=== PATIENT | male | born 1935 | race Caucasian/White ===

== ENCOUNTER 2022-04-28 16:51 | Observation (INO) | payer MEDICARE, SELFPAY ==
[2022-04-28 16:53] VITALS: BP 187/122; PULSE 72; RESP 17; TEMP 37.1; O2SAT 94; BMI 24.4
--- NOTE | 2022-04-28 17:19 | HMH.EDAMS ---
Discharge Plan Disposition Chief Complaint: Altered Mental Status Prescriptions Prescriptions: No Action donepezil 5 mg Tablet 5 mg PO DAILY metoprolol tartrate 100 mg Tablet 100 mg PO BID finasteride 5 mg Tablet 5 mg PO DAILY Referrals Follow up/Referrals: Sruthi Valverde MD [Primary Care Provider] - See instructions Instructions Patient Instructions: DI for Altered Mental Status Discharge ED Provider: Lj Smith Altered Mental Status HPI General Chief Complaint: Altered Mental Status Stated Complaint: Confused Time Seen by Provider: 04/28/22 17:09 Mode of Arrival: EMS Source of Information: EMS Limitations: No Limitations Description of Symptoms (Recalled from ER Triage Doc. by RN): 86 M presents via EMS from home after family called out for weakness and AMS. EMS reports patient is a/o x4 and was able to tell them the brand of ambulance they were riding in. Patient has history of chronic UTI and urinary incontinence which he typically wears a condom cathetor for. Family reports patient has not urinated since last night. Patient is hypertensive in route, 190/100. EMS has an 18g to LUE. History of Present Illness HPI narrative: Patient presents with altered mental status. H&P is limited due to patient being confused he resides with family he states that he has been weak and altered. My direct questioning the patient denies being in any pain. He states he is confused he denies recent illness Related Data Home Medications Medication Instructions Recorded Confirmed donepezil 5 mg tablet 5 mg PO DAILY Memory 04/28/22 04/28/22 finasteride 5 mg tablet 5 mg PO DAILY Urinary 04/28/22 04/28/22 metoprolol tartrate 100 mg tablet 100 mg PO BID Blood Pressure 04/28/22 04/28/22 Allergies Allergy/AdvReac Type Severity Reaction Status Date / Time No Known Allergies Allergy Verified 04/28/22 17:03 [facility] Disclaimer: The information contained in this section may have been updated after the patient was seen, as this information can be updated by other users. Medical History Chronic UTI (urinary tract infection) Dementia Hypertension Urinary incontinence Social History Smoking Status: Never smoker alcohol intake: never current occupational status: unemployed Travel in the last 8 weeks: None ROS Obtained: Yes unobtainable due to mental condition Physical Exam General General appearance: alert and in no apparent distress Head Head exam: atraumatic, normocephalic and normal inspection Eye Eye exam: Present normal appearance, PERRL and EOMI ENT ENT exam: Present normal exam, normal oropharynx, mucous membranes moist, TM's normal bilaterally and normal external ear exam Neck Neck exam: Present normal inspection, full ROM and trachea midline; Absent meningismus or lymphadenopathy Chest Chest inspection: Present normal inspection and symmetric chest wall rise; Absent tenderness Respiratory Respiratory exam: Present normal lung sounds bilaterally; Absent respiratory distress Cardiovascular Cardiovascular exam: Present regular rate and normal rhythm; Absent JVD Abdominal Exam Abdominal exam: Present soft and normal bowel sounds; Absent distention, tenderness or guarding Extremities Exam Extremities exam: Present normal inspection, full ROM and normal capillary refill; Absent calf tenderness Back Exam Back exam: Present normal inspection; Absent tenderness Neurological Exam Neurological exam: Present alert and oriented X3 (Patient is oriented only to person, not place nor time.) Psychiatric Psychiatric exam: Present normal affect and normal mood Skin Skin exam: Present warm, dry, intact and normal color Lymphatic Lymphatic Findings: no adenopathy Medical Decision Making Marty Inquiry Pt receiving controlled substance: No Vital Signs: 04/28/22 16:53 04/28/22 17:30 [place]
[2022-04-28 17:26] LABS: Basophils # 0.1 K/mm3 (0-0.2); Basophils % 0.6 % (0.1-2.0); Eosinophils # 0.2 K/mm3 (0.0-0.4); Eosinophils % 1.4 % (0.1-12.0); Hematocrit 46.9 % (42.0-52.0); Hemoglobin 15.8 g/dL (14.1-18.0); Lymphocytes # 0.3 K/mm3 (0.7-4.5); Lymphocytes % 2.4 % (10-50); Mean Corpuscular HGB Conc 33.7 g/dL (31.8-35.4); Mean Corpuscular Hemoglobin 30.4 pg (27.0-31.2); Mean Corpuscular Volume 90.3 fl (80-94); Monocytes # 0.5 K/mm3 (0.1-1.0); Neutrophils # 10.8 K/mm3 (1.8-7.8); Neutrophils % 91.5 % (37.0-80.0); Platelet Count 269 K/mm3 (142-424); Red Cell Distribution Width 14.3 % (11.5-17.5); White Blood Count 11.8 K/mm3 (4.8-10.8)
[2022-04-28 17:29] LABS: MANUAL DIFFERENTIAL MANUAL DIFFERENTIAL (MANUAL DIFF)
[2022-04-28 17:30] VITALS: BP 161/110
[2022-04-28 17:31] LABS: Microscopic, Urine URINE MICROSCOPIC (MICROSCOPIC)
[2022-04-28 17:31] LABS: Chloride 103 mmol/L (98-107); Sodium 138 mmol/L (136-145)
[2022-04-28 17:32] LABS: Potassium 4.2 mmoL/L (3.5-5.1)
--- NOTE | 2022-04-28 17:32 | XR_ITS ---
PROCEDURE INFORMATION: Exam: XR Chest Exam date and time: 04/28/2022 6:13 PM Age: 86 years old Clinical indication: Other: AMS TECHNIQUE: Imaging protocol: Radiologic exam of the chest. Views: 1 view. COMPARISON: No relevant prior studies available. FINDINGS: Lungs: Nonspecific bibasilar opacities, likely atelectasis. Stigmata of old granulomatous disease. Pleural spaces: Unremarkable. No pleural effusion. No pneumothorax. Heart/Mediastinum: Unremarkable. No cardiomegaly. Vasculature: Vascular calcifications. Tortuous thoracic aorta. Bones/joints: Unremarkable. IMPRESSION: Nonspecific bibasilar opacities, likely atelectasis. Please exclude atypical infection clinically.
--- NOTE | 2022-04-28 17:32 | CT_ITS ---
PROCEDURE INFORMATION: Exam: CT Head Without Contrast Exam date and time: 04/28/2022 5:48 PM Age: 86 years old Clinical indication: Altered mental status/memory loss; Confusion or disorientation; Additional info: AMS TECHNIQUE: Imaging protocol: Computed tomography of the head without contrast. Radiation optimization: All CT scans at this facility use at least one of these dose optimization techniques: automated exposure control; mA and/or kV adjustment per patient size (includes targeted exams where dose is matched to clinical indication); or iterative reconstruction. REPORTING DATA: Count of CT and Cardiac NM exams in prior 12 months: This patient has received 0 known CTs and 0 known cardiac nuclear medicine studies in the 12 months prior to the current study. COMPARISON: No relevant prior studies available. FINDINGS: Brain: Moderate chronic brain volume loss and chronic small vessel ischemic changes. Cerebral ventricles: No ventriculomegaly. Paranasal sinuses: Retention cysts in the ethmoid air cells. Mastoid air cells: Visualized mastoid air cells are well aerated. Orbital cavities: Status post bilateral cataract surgery. Bones/joints: Unremarkable. No acute fracture. Soft tissues: Unremarkable. IMPRESSION: No acute intracranial findings. If there is high clinical concern for acute infarction, consider MRI for further evaluation. ASSESSMENT: ASPECTS score ([place] Stroke Program Early CT Score) is 10.
[2022-04-28 17:33] LABS: Appearance,Urine CLEAR (Clear); Bilirubin,Urine Negative (Negative); Blood, Urine 1+ (Negative); Color,Urine YELLOW (Yellow); Glucose,Urine (UA) Negative (Negative); Ketones,Urine Negative (Negative); Leukocyte Esterase,Urine 1+ (Negative); Nitrate,Urine POSITIVE (Negative); Protein,Urine 1+ (Negative); Specific Gravity, Urine 1.025 (1.005-1.030); Urobilinogen,Urine 0.2 EU/dl (0.2)
[2022-04-28 17:34] LABS: Alanine Aminotransferase 29 U/L (12-78); Alkaline Phosphatase 86 U/L (38-126); Anion Gap 11.2 mEq/L (5-15); Aspartate Amino Transferase 36 U/L (17-59); Blood Urea Nitrogen 21 mg/dl (9-20); Carbon Dioxide 28 mmol/L (22.0-30.0); Creatinine Clearance Estimated 51 mL/min (50-200); Estimated Glomerular Filt Rate 57 ml/min (>60); GFR (African American) 69 ML/MIN (>60)
[2022-04-28 17:35] LABS: Albumin Level 4.1 g/dl (3.5-5.0); Albumin/Globulin Ratio 1.5 (1.1-1.8); Calcium 8.4 mg/dl (8.4-10.2); Globulin 2.7 g/dL (1.3-3.2); Glucose 109 mg/dl (74-100); Total Protein,Serum 6.8 g/dl (6.3-8.2)
[2022-04-28 17:40] LABS: Lymphocytes % 4 % (10-50); Monocytes % 3 % (2-9); Neutrophils % 93 % (42-76); Total Cells Counted 100
[2022-04-28 17:41] LABS: Platelet Estimate Normal; RBC Morphology Normal
[2022-04-28 17:43] LABS: Bacteria,Urine Trace /lpf; Squamous Epithelial Cell,Urine Occasional #/hpf (0-5)
[2022-04-28 17:47] LABS: Troponin I < 0.01 ng/ml (0.00-0.034)
[2022-04-28 18:20] LABS: Lactic Acid 1.1 mmol/L (0.7-2.1)
[2022-04-28 18:30] VITALS: BP 178/116; PULSE 69; RESP 18; O2SAT 95
--- NOTE | 2022-04-28 19:03 | HMH.EDAMS ---
Discharge Plan Disposition Patient Disposition: Admitted As Inpatient Condition: Fair Prescriptions Prescriptions: No Action donepezil 5 mg Tablet 5 mg PO DAILY metoprolol tartrate 100 mg Tablet 100 mg PO BID finasteride 5 mg Tablet 5 mg PO DAILY Referrals Follow up/Referrals: Sruthi Valverde MD [Primary Care Provider] - See instructions Clinical Impressions Clinical Impression: Altered mental status, Acute lower urinary tract infection Instructions Patient Instructions: DI for Altered Mental Status Discharge ED Provider: Lj Smith Altered Mental Status HPI General Chief Complaint: Altered Mental Status Stated Complaint: Confused Time Seen by Provider: 04/28/22 17:09 Mode of Arrival: EMS Source of Information: EMS Limitations: No Limitations Description of Symptoms (Recalled from ER Triage Doc. by RN): 86 M presents via EMS from home after family called out for weakness and AMS. EMS reports patient is a/o x4 and was able to tell them the brand of ambulance they were riding in. Patient has history of chronic UTI and urinary incontinence which he typically wears a condom cathetor for. Family reports patient has not urinated since last night. Patient is hypertensive in route, 190/100. EMS has an 18g to LUE. Related Data Home Medications Medication Instructions Recorded Confirmed donepezil 5 mg tablet 5 mg PO DAILY Memory 04/28/22 04/28/22 finasteride 5 mg tablet 5 mg PO DAILY Urinary 04/28/22 04/28/22 metoprolol tartrate 100 mg tablet 100 mg PO BID Blood Pressure 04/28/22 04/28/22 Allergies Allergy/AdvReac Type Severity Reaction Status Date / Time No Known Allergies Allergy Verified 04/28/22 17:03 [facility] Disclaimer: The information contained in this section may have been updated after the patient was seen, as this information can be updated by other users. Medical History Chronic UTI (urinary tract infection) Dementia Hypertension Urinary incontinence Social History (Updated 04/28/22 @ 19:03 by Lj Smith MD) Smoking Status: Never smoker alcohol intake: never current occupational status: unemployed Travel in the last 8 weeks: None ROS Obtained: Yes unobtainable due to mental condition Physical Exam General General appearance: alert and in no apparent distress Respiratory Respiratory exam: Present normal lung sounds bilaterally Cardiovascular Cardiovascular exam: Present regular rate Neurological Exam Neurological exam: Present alert; Absent oriented X3 Medical Decision Making Marty Inquiry Pt receiving controlled substance: No Vital Signs: 04/28/22 16:53 04/28/22 17:30 Temperature 98.7 F Temperature Source Oral Pulse Rate [Left] 72 Respiratory Rate 17 Blood Pressure 161/110 H Blood Pressure [Right Arm] 187/122 H Blood Pressure Mean 129 Blood Pressure Mean [Right Arm] 143 Blood Pressure Source [Right Arm] Automatic Cuff Blood Pressure Position [Right Arm] Sitting 02 Sat by Pulse Oximetry 94 L Oxygen Delivery Method Room Air Lab Data Lab Results 04/28/22 16:52: WBC 11.8 H, RBC 5.20, Hgb 15.8, Hct 46.9, MCV 90.3, MCH 30.4, MCHC 33.7, RDW 14.3, Plt Count 269, MPV 8.0, Neut % (Auto) 91.5 H, Lymph % (Auto) 2.4 L, [place] % (Auto) 4.0, Eos % (Auto) 1.4, Baso % (Auto) 0.6, Neut # (Auto) 10.8 H, Lymph # (Auto) 0.3 L, [place] # (Auto) 0.5, Eos # (Auto) 0.2, Baso # (Auto) 0.1, Total Counted 100, Neutrophils % (Manual) 93 H, Lymphocytes % (Manual) 4 L, Monocytes % (Manual) 3, Platelet Estimate Normal, RBC Morphology Normal 04/28/22 16:52: Sodium 138, Potassium 4.2, Chloride 103, Carbon Dioxide 28, Anion Gap 11.2, BUN 21 H, Creatinine 1.20, Estimated Creat Clear 51, Estimated GFR 57 L, Est GFR ( Amer) 69, Glucose 109 H, Calcium 8.4, Total Bilirubin 1.0, AST 36, ALT 29, Alkaline Phosphatase 86, Troponin I < 0.01, Total Protein 6.8, Albumin 4.1, Globulin 2.7, Albumin/Globulin Rati
--- NOTE | 2022-04-28 19:08 | PC.NURSE ---
waiting material control associate back from hospitalist for admission
[2022-04-28 19:18] LABS: Coronavirus 19, PCR Not Detected (NotDetected); Influenza A, PCR Not Detected (NotDetected); Influenza B, PCR Not Detected (NotDetected)
--- NOTE | 2022-04-28 19:35 | EXP.HP ---
History of Present Illness *Admission Date: 04/28/22 *Reason for visit:: Confusion outside normal *History of present illness: Mr. Norris is a 86-year-old male with a past medical history of Dementia, HTN and BPH. He presents to [facility] through the ER due to confusion outside his normal. There is no family at bedside at time of admission, but per discussion with ER Physician Dr. Smith who spoke with the daughter who lives with the patient the patient has been confused outside his normal for the last day and had not been able to urinate. In the ER the patient underwent a CT of the head that has not been read by radiology at the time of admission, on exam the patient has no focal neurological deficits, he is oriented to place and name, but not time or President. His urinalysis shows 1 plus leukoesterase, is positive for nitrates, has 1 plus blood, 10-20 WBC and Trace bacteria. In the ER, the patient had blood cultures and urine cultures drawn and was given a dose of Rocephin. The patient will be admitted with initial impression: UTI and change in mental status. [facility] Disclaimer: The information contained in this section may have been updated after the patient was seen, as this information can be updated by other users. Medical History (Updated 04/29/22 @ 11:53 by Russell Hugo MD) Chronic UTI (urinary tract infection) Dementia Hypertension Urinary incontinence Surgical History (Updated 04/28/22 @ 21:23 by Brittani Garcia RN) No significant past surgical history Family History (Updated 04/28/22 @ 21:23 by Brittani Garcia RN) No significant family history Social History (Updated 04/28/22 @ 21:23 by Brittani Garcia RN) Smoking Status: Never smoker alcohol intake: never current occupational status: unemployed Travel in the last 8 weeks: None Review of Systems Review of Systems Review of systems:: unable to obtain and pertinent systems reviewed and negative unless documented below Meds Home Medications and Allergies Home Medications Medication Instructions Recorded Confirmed Type donepezil 5 mg tablet 5 mg PO DAILY Memory 04/28/22 04/28/22 History finasteride 5 mg tablet 5 mg PO DAILY prostate 04/28/22 04/28/22 History metoprolol tartrate 100 mg tablet 100 mg PO BID Blood Pressure 04/28/22 04/28/22 History cefdinir 300 mg capsule 300 mg PO BID 6 days #12 caps 04/29/22 Rx tamsulosin 0.4 mg capsule 0.4 mg PO HS 30 days #30 caps 04/29/22 Rx New Prescriptions to Start Prescriptions: Russell Lema tamsulosin Russell Hugo Allergies Allergy/AdvReac Type Severity Reaction Status Date / Time No Known Allergies Allergy Verified 04/28/22 17:03 Exam Data for Last 24 hours Vital signs and Labs for Last 24 Hours: Temp Pulse Resp BP Pulse Ox 98.7 F 72 17 161/110 H 94 L 04/28/22 16:53 04/28/22 16:53 04/28/22 16:53 04/28/22 17:30 04/28/22 16:53 Laboratory Results - last 24 hr 04/28/22 16:52: WBC 11.8 H, RBC 5.20, Hgb 15.8, Hct 46.9, MCV 90.3, MCH 30.4, MCHC 33.7, RDW 14.3, Plt Count 269, MPV 8.0, Neut % (Auto) 91.5 H, Lymph % (Auto) 2.4 L, [place] % (Auto) 4.0, Eos % (Auto) 1.4, Baso % (Auto) 0.6, Neut # (Auto) 10.8 H, Lymph # (Auto) 0.3 L, [place] # (Auto) 0.5, Eos # (Auto) 0.2, Baso # (Auto) 0.1, Total Counted 100, Neutrophils % (Manual) 93 H, Lymphocytes % (Manual) 4 L, Monocytes % (Manual) 3, Platelet Estimate Normal, RBC Morphology Normal 04/28/22 16:52: Sodium 138, Potassium 4.2, Chloride 103, Carbon Dioxide 28, Anion Gap 11.2, BUN 21 H, Creatinine 1.20, Estimated Creat Clear 51, Estimated GFR 57 L, Est GFR ( Amer) 69, Glucose 109 H, Calcium 8.4, Total Bilirubin 1.0, AST 36, ALT 29, Alkaline Phosphatase 86, Troponin I < 0.01, Total Protein 6.8, Albumin 4.1, Globulin 2.7, Albumin/Globulin Ratio 1.5 04/28/22 17:25: Urine Color Yellow, Urine Appearance Clear, Urine pH 6.0, Ur Specific [place] 1.025,
--- NOTE | 2022-04-28 19:43 | PC.NURSE ---
Pt very restless at this time. Pt repositioned in bed and warm blankets provided. Lights turned off and call light within reach.
[2022-04-28 20:00] VITALS: PULSE 70
[2022-04-28 20:05] VITALS: BP 134/78; PULSE 69; RESP 18; TEMP 37; O2SAT 96
--- NOTE | 2022-04-28 20:06 | PC.NURSE ---
Report to LEONELA Peter
--- NOTE | 2022-04-28 20:19 | PC.NURSE ---
Pt arrived to floor via stretcher @ 2014
[2022-04-28 20:33] VITALS: BP 134/78; PULSE 69; RESP 14; TEMP 37.3; O2SAT 97
[2022-04-28 20:34] VITALS: BMI 22.3
[2022-04-28 21:24] LABS: Troponin I < 0.01 ng/ml (0.00-0.034)
--- NOTE | 2022-04-28 21:46 | PC.NURSE ---
REGGIE AUSTIN NOTIFIED THAT PT'S SNYDER BAG HAD BRIGHT RED BLOOD IN IT. DECKHAND STATED TO HOLD PM DOSE OF HEPARIN.
[2022-04-29] VITALS (8 sets, daily range): BP systolic 125–145; BP diastolic 66–96; PULSE 50–70; RESP 16–17; TEMP 36.7–39; O2SAT 92–95; BMI 22.3
[2022-04-29 00:01] LABS: Troponin I < 0.01 ng/ml (0.00-0.034)
--- NOTE | 2022-04-29 00:39 | PC.NURSE ---
COURTESY ROUND- PATIENT AWAKE LAYING IN BED WITH CALL LIGHT WITH REACH . PATIENT VOICED NO NEEDS AT THIS TIME
--- NOTE | 2022-04-29 04:31 | PC.NURSE ---
COURTESY ROUND- PATIENT ASLEEP. TRASH EMPTIED AND ICE WATER REFILLED
--- NOTE | 2022-04-29 06:34 | PC.NURSE ---
PT RESTED WELL THIS SHIFT. VSS. PT DID BECME FEBRILE ONCE THIS SHIFT TREATED WITH PRN MEDS. SNYDER REMAINS IN PLACE URINE WAS BLOODY MOST OF SHIFT BUT IS CLEARING UP. PT HAS HAD NO COMPLAINTS THIS SHIFT. VSS. BED ALARM IN PLACE FOR PT SAFETY.
[2022-04-29 07:25] LABS: Basophils # 0.1 K/mm3 (0-0.2); Basophils % 0.8 % (0.1-2.0); Eosinophils # 0.1 K/mm3 (0.0-0.4); Eosinophils % 1.6 % (0.1-12.0); Hematocrit 46.3 % (42.0-52.0); Lymphocytes # 0.7 K/mm3 (0.7-4.5); Lymphocytes % 7.8 % (10-50); Mean Corpuscular HGB Conc 32.4 g/dL (31.8-35.4); Mean Corpuscular Hemoglobin 30.1 pg (27.0-31.2); Mean Corpuscular Volume 92.9 fl (80-94); Mean Platelet Volume 7.7 fl (7.4-10.4); Monocytes # 0.6 K/mm3 (0.1-1.0); Monocytes % 7.1 % (1.7-9.3); Neutrophils # 6.9 K/mm3 (1.8-7.8); Neutrophils % 82.6 % (37.0-80.0); Platelet Count 243 K/mm3 (142-424); Red Blood Count 4.99 M/mm3 (4.60-6.20); Red Cell Distribution Width 14.4 % (11.5-17.5); White Blood Count 8.4 K/mm3 (4.8-10.8)
[2022-04-29 08:43] LABS: Alanine Aminotransferase 22 U/L (12-78); Albumin Level 3.5 g/dl (3.5-5.0); Albumin/Globulin Ratio 1.3 (1.1-1.8); Alkaline Phosphatase 76 U/L (38-126); Aspartate Amino Transferase 30 U/L (17-59); Bilirubin,Total 0.9 mg/dl (0.2-1.3); Blood Urea Nitrogen 20 mg/dl (9-20); Calcium 8.1 mg/dl (8.4-10.2); Carbon Dioxide 27 mmol/L (22.0-30.0); Chloride 104 mmol/L (98-107); Creatinine Clearance Estimated 47 mL/min (50-200); Estimated Glomerular Filt Rate 57 ml/min (>60); GFR (African American) 69 ML/MIN (>60); Globulin 2.6 g/dL (1.3-3.2); Glucose 101 mg/dl (74-100); Sodium 137 mmol/L (136-145); Total Protein,Serum 6.1 g/dl (6.3-8.2)
--- NOTE | 2022-04-29 09:32 | HMH.PHAINT1 ---
Pharmacy Intervention Comments: Medication reconciliation completed using external fill history and interview with pt family
--- NOTE | 2022-04-29 09:33 | PC.NURSE ---
pts vss, rothman removed, pt stated he had to urinate, attempted it with a urinal with no results. pt states he still has the urge. sent home meds to pharm.
--- NOTE | 2022-04-29 11:04 | EXP.DC.SUM ---
General Admission date:: 04/28/22 Discharge date: 04/29/22 HPI HPI HPI: Mr. Norris is a 86-year-old male with a past medical history of Dementia, HTN and BPH. He presents to [facility] through the ER due to confusion outside his normal. There is no family at bedside at time of admission, but per discussion with ER Physician Dr. Smith who spoke with the daughter who lives with the patient the patient has been confused outside his normal for the last day and had not been able to urinate. In the ER the patient underwent a CT of the head that has not been read by radiology at the time of admission, on exam the patient has no focal neurological deficits, he is oriented to place and name, but not time or President. His urinalysis shows 1 plus leukoesterase, is positive for nitrates, has 1 plus blood, 10-20 WBC and Trace bacteria. In the ER, the patient had blood cultures and urine cultures drawn and was given a dose of Rocephin. The patient will be admitted with initial impression: UTI and change in mental status. Hospital Course Hospital Course Hospital Course: 86-year-old male with Dementia, BPH, HTN presents with confusion outside his normal. Initial labs concerning for UTI. Gets UTIs - Change in mental status -Urinary tract infection Presented with confusion outside of his normal baseline mild cognitive impairment. Family expressed concern. Brought him to the ER. Found to have UTI on initial urinalysis. Admitted for IV antibiotics and monitoring with neurochecks overnight. Improved to baseline mentation by the following morning. Patient denies any dysuria. Has been wearing a condom cath regularly for at least the past 6 weeks. Sees urology at [facility]. Last antibiotic per review from his pharmacy was ciprofloxacin. Given response to ceftriaxone while inpatient, and culture showing gram-negative rods, will transition to cefdinir to complete 7-day course. Urinary retention likely complicating factor. Recommend patient follow-up as soon as possible with his urologist for discussion of further treatment such as indwelling catheter or in and out cathing. We will continue to follow culture after discharge, if resistant to cephalosporins, will adjust as needed. Stable for discharge home. Hypertension: Continue Metoprolol 100 mg po bid BPH: Continue Finesteride 5 mg po q day, initiate tamsulosin 0.4mg Daily Dementia: Continue Donepezil 5 mg po q day Exam Data for Last 24 hours Vital signs and Labs for Last 24 Hours: Temp Pulse Resp BP Pulse Ox 98.6 F 55 L 17 125/76 94 L 04/29/22 07:33 04/29/22 09:21 04/29/22 07:33 04/29/22 09:21 04/29/22 07:33 Laboratory Results - last 24 hr 04/28/22 16:52: WBC 11.8 H, RBC 5.20, Hgb 15.8, Hct 46.9, MCV 90.3, MCH 30.4, MCHC 33.7, RDW 14.3, Plt Count 269, MPV 8.0, Neut % (Auto) 91.5 H, Lymph % (Auto) 2.4 L, [place] % (Auto) 4.0, Eos % (Auto) 1.4, Baso % (Auto) 0.6, Neut # (Auto) 10.8 H, Lymph # (Auto) 0.3 L, [place] # (Auto) 0.5, Eos # (Auto) 0.2, Baso # (Auto) 0.1, Total Counted 100, Neutrophils % (Manual) 93 H, Lymphocytes % (Manual) 4 L, Monocytes % (Manual) 3, Platelet Estimate Normal, RBC Morphology Normal 04/28/22 16:52: Sodium 138, Potassium 4.2, Chloride 103, Carbon Dioxide 28, Anion Gap 11.2, BUN 21 H, Creatinine 1.20, Estimated Creat Clear 51, Estimated GFR 57 L, Est GFR ( Amer) 69, Glucose 109 H, Calcium 8.4, Total Bilirubin 1.0, AST 36, ALT 29, Alkaline Phosphatase 86, Troponin I < 0.01, Total Protein 6.8, Albumin 4.1, Globulin 2.7, Albumin/Globulin Ratio 1.5 04/28/22 17:25: Urine Color Yellow, Urine Appearance Clear, Urine pH 6.0, Ur Specific [place] 1.025, Urine Protein 1+, Urine Glucose (UA) Negative, Urine Ketones Negative, Urine Blood 1+, Urine Nitrate Positive, Urine Bilirubin Negative, Urine Urobilinogen 0.2, Ur Leukocyte Esterase 1+ A, Urine RBC 10-20, Urine WBC 10-20, Ur Squamous Epith Cells Occasional, Urine Bacteria Trace 04/28/22 17:50:
--- NOTE | 2022-04-29 12:56 | HMH.PHAINT1 ---
Pharmacy Intervention Comments: Discussed discharge medications with patient and family member. Both verbalized understanding and had no questions at this time
--- NOTE | 2022-05-03 15:25 | CARE MANAGER ---
Spoke with Mr. Norris regarding recent discharge. Patient had no complaints or concerns at time of call. He was unaware of f/u appt with Dr. Gruber on 05/07 @ 4524. I informed him of this information.
== END 2022-04-29 13:50 | disposition home or self-care (01) ==
LOC: ER 19:05 → 2ND 19:40
PROVIDERS: Nurse Practitioner Family; Admitting Provider Internal Medicine Adolescent Medicine; Emergency Provider Emergency Medicine; PCP Internal Medicine; Visit Provider Internal Medicine Adolescent Medicine
DX: N39.0 Urinary tract infection, site not specified (principal); I10 Essential (primary) hypertension; N40.0 Benign prostatic hyperplasia without lower urinary tract symptoms; R33.9 Retention of urine, unspecified; F03.90 Unspecified dementia, unspecified severity, without behavioral disturbance, psychotic disturbance, mood disturbance, and anxiety; Z79.899 Other long term (current) drug therapy; Z20.822 Contact with and (suspected) exposure to COVID-19
CPT/HCPCS: G0378; 36415; 51702; 70450; 71045; 80053; 81001; 83605; 84484; 85007; 85025; 87040; 87086; 87088; 87186; 99285; C9803; J0696; U0003; U0005

== ENCOUNTER 2022-06-17 19:42 | Observation (INO) | payer MEDICARE, SELFPAY ==
[2022-06-17 19:42] VITALS: BP 169/100; PULSE 56; RESP 17; TEMP 36.9; O2SAT 97; BMI 21.7
--- NOTE | 2022-06-17 20:00 | PC.NURSE ---
Bladdar scan performed, only 15 ml in bladder at this time. Dr Conway at bedside, order to remove old rothman and replace with new.
--- NOTE | 2022-06-17 20:06 | ECG_ITS ---
APPROVED REPORT Exam: Resting ECG HR:55 bpm ECG Measurements Heart Rate 55 AXES PA 220 P 51 QRSd 85 QRS -13 QT 431 T 44 QTc 420 Conclusion SINUS BRADYCARDIA WITH FIRST DEGREE AV BLOCK MODERATE VOLTAGE CRITERIA FOR LVH, CONSIDER NORMAL VARIANT [MEETS CRITERIA IN ONE OF: R(aVL), S(V1), R(V5), R(V5/V6)+S(V1)] ABNORMAL ECG UNCONFIRMED REPORT Electronically signed by : Refugio Valdez MD 06/17/2022 21:11:46
--- NOTE | 2022-06-17 20:06 | XR_ITS ---
PROCEDURE INFORMATION: Exam: XR Chest Exam date and time: 06/17/2022 8:39 PM Age: 87 years old Clinical indication: Other: AMS; Additional info: Altered mental status TECHNIQUE: Imaging protocol: Radiologic exam of the chest. Views: 1 view. COMPARISON: CR XR CHEST PORTABLE 04/28/2022 6:13 PM FINDINGS: Lungs: Mild interstitial prominence in the lower lungs appear stable. No acute pulmonary infiltrate. Pleural spaces: Unremarkable. No pleural effusion. No pneumothorax. Heart/Mediastinum: Unremarkable. No cardiomegaly. Bones/joints: Unremarkable. IMPRESSION: No acute disease
[2022-06-17 20:19] LABS: Basophils # 0.1 K/mm3 (0-0.2); Basophils % 0.9 % (0.1-2.0); Chloride 104 mmol/L (98-107); Eosinophils # 0.5 K/mm3 (0.0-0.4); Eosinophils % 5.7 % (0.1-12.0); Hematocrit 44.4 % (42.0-52.0); Hemoglobin 14.2 g/dL (14.1-18.0); Lymphocytes # 1.2 K/mm3 (0.7-4.5); Lymphocytes % 12.4 % (10-50); Mean Corpuscular HGB Conc 32.1 g/dL (31.8-35.4); Mean Corpuscular Hemoglobin 29.3 pg (27.0-31.2); Mean Corpuscular Volume 91.4 fl (80-94); Mean Platelet Volume 7.9 fl (7.4-10.4); Monocytes # 0.8 K/mm3 (0.1-1.0); Monocytes % 8.5 % (1.7-9.3); Neutrophils # 6.7 K/mm3 (1.8-7.8); Neutrophils % 72.4 % (37.0-80.0); Platelet Count 261 K/mm3 (142-424); Red Blood Count 4.85 M/mm3 (4.60-6.20); Red Cell Distribution Width 14.9 % (11.5-17.5); Sodium 138 mmol/L (136-145); White Blood Count 9.2 K/mm3 (4.8-10.8)
[2022-06-17 20:20] LABS: Potassium 3.8 mmoL/L (3.5-5.1)
[2022-06-17 20:21] LABS: Lactic Acid 1.2 mmol/L (0.7-2.1)
[2022-06-17 20:21] LABS: Microscopic, Urine URINE MICROSCOPIC (MICROSCOPIC)
[2022-06-17 20:22] LABS: Alanine Aminotransferase 18 U/L (12-78); Alkaline Phosphatase 78 U/L (38-126); Anion Gap 7.8 mEq/L (5-15); Aspartate Amino Transferase 26 U/L (17-59); Blood Urea Nitrogen 18 mg/dl (9-20); Calcium 8.4 mg/dl (8.4-10.2); Carbon Dioxide 30 mmol/L (22.0-30.0); Creatinine Clearance Estimated 45 mL/min (50-200); Estimated Glomerular Filt Rate 57 ml/min (>60); GFR (African American) 69 ML/MIN (>60); Glucose 97 mg/dl (74-100)
[2022-06-17 20:23] LABS: Albumin Level 3.4 g/dl (3.5-5.0); Albumin/Globulin Ratio 1.3 (1.1-1.8); Globulin 2.6 g/dL (1.3-3.2); Magnesium 2.2 mg/dl (1.6-2.3)
[2022-06-17 20:26] LABS: Activated Partial Thrombo Time 28.5 seconds (22.8-30.6); INR 1.01 (0.9-1.1); Prothrombin Time 10.9 seconds (10.1-12.5)
[2022-06-17 20:28] LABS: Acetaminophen < 10 ug/ml (10-30); Ethyl Alcohol < 10 mg/dl (0-10); Salicylate < 1.0 mg/dL (2.0-20.0)
[2022-06-17 20:30] VITALS: BP 156/87; PULSE 56; RESP 11; O2SAT 94
[2022-06-17 20:36] LABS: Troponin I < 0.01 ng/ml (0.00-0.034)
[2022-06-17 20:47] LABS: Appearance,Urine CLEAR (Clear); Blood, Urine 3+ (Negative); Color,Urine YELLOW (Yellow); Glucose,Urine (UA) Negative (Negative); Ketones,Urine 1+ (Negative); Leukocyte Esterase,Urine 2+ (Negative); Nitrate,Urine Negative (Negative); PH,Urine 6.5 (5.0-8.5); Protein,Urine 3+ (Negative); Specific Gravity, Urine 1.025 (1.005-1.030); Urobilinogen,Urine 0.2 EU/dl (0.2)
[2022-06-17 20:51] LABS: Bilirubin,Urine 1+ (Negative)
[2022-06-17 20:58] LABS: Barbiturates Screen,Urine Negative ng/ml (<200); Benzodiazepines Screen,Urine Negative ng/ml (<200)
[2022-06-17 20:59] LABS: Amphetamine/Metha Screen,Urine Negative ng/ml (<1000)
[2022-06-17 21:00] LABS: Cannabinoid Screen,Urine Negative ng/ml (<50); Cocaine Screen,Urine Negative ng/ml (<300)
[2022-06-17 21:01] LABS: Methadone Screen,Urine Negative ng/ml (<300); Opiate Screen,Urine Negative ng/ml (<300)
[2022-06-17 21:02] LABS: Phencyclidine Screen,Urine Negative ng/ml (<25)
[2022-06-17 21:30] LABS: Bacteria,Urine 2+ /lpf; Calcium Oxalate Crystals,Urine 2+ /lpf; RBC,Urine TNTC #/hpf (0-3); WBC,Urine TNTC #/hpf (0-3)
--- NOTE | 2022-06-17 21:40 | PC.NURSE ---
Dr. Dumont s/w Hospitalist for admission
--- NOTE | 2022-06-17 21:45 | HMH.EDAMS ---
Discharge Plan Disposition Chief Complaint: Altered Mental Status Prescriptions Prescriptions: No Action donepezil 5 mg Tablet 5 mg PO DAILY metoprolol tartrate 100 mg Tablet 100 mg PO BID finasteride 5 mg Tablet 5 mg PO DAILY tamsulosin 0.4 mg capsule 0.4 mg PO HS 30 Days Qty: 30 0RF cefdinir 300 mg capsule 300 mg PO BID 6 Days Qty: 12 0RF Referrals Follow up/Referrals: Sruthi Valverde MD [Primary Care Provider] - See instructions Instructions Patient Instructions: DI for Altered Mental Status Discharge ED Provider: Hilary Dumont Altered Mental Status HPI General Chief Complaint: Altered Mental Status Stated Complaint: AMS Time Seen by Provider: 06/17/22 20:15 Mode of Arrival: EMS Source of Information: Patient, EMS and Medical Record Limitations: Altered Mental Status Description of Symptoms (Recalled from ER Triage Doc. by RN): Pt brought in by EMS for acute AMS, diarrhea, and suspected UTI. He has a known hx of UTI's and admitted here on 04/28-04/29 for a UTI. Pt is Alert and ordiented to person. Per EMS, family is leaving for [place] and may not be able to come in but there was a grandson that was there with him . EMS reports pt typically can take care of himself but on arrival to the home pt was wearing his sweatpants as a towel. History of Present Illness HPI narrative: Patient is a 87-year-old male who is here secondary to mental status change. Patient apparently was found to have decreased level consciousness at home. Patient was being watched by his grandson primary caregiver daughter was going to [facility]. She was driving to [facility] and had to turn around and come back. Patient has BPH has a Kelly catheter and gets chronic UTIs. Daughter thought that she might be having another UTI. On examination patient is alert but not oriented. He has had no nausea vomiting no fever chills no chest pain belly pain. He is also had some diarrhea per family history. MD complaint: altered mental status, confusion, decreased responsiveness and weakness Onset (ago): minute(s) Timing confirmed by: family member Severity: moderate Consistency of symptoms: constant Context: other (Altered mental status chronic UTI) Associated symptoms: loss of appetite and weakness Related Data Home Medications Medication Instructions Recorded Confirmed donepezil 5 mg tablet 5 mg PO DAILY Memory 04/28/22 04/28/22 finasteride 5 mg tablet 5 mg PO DAILY prostate 04/28/22 04/28/22 metoprolol tartrate 100 mg tablet 100 mg PO BID Blood Pressure 04/28/22 04/28/22 Previous Rx's Medication Instructions Recorded cefdinir 300 mg capsule 300 mg PO BID 6 days #12 caps 04/29/22 tamsulosin 0.4 mg capsule 0.4 mg PO HS 30 days #30 caps 04/29/22 Allergies Allergy/AdvReac Type Severity Reaction Status Date / Time No Known Allergies Allergy Verified 04/28/22 17:03 [facility] Disclaimer: The information contained in this section may have been updated after the patient was seen, as this information can be updated by other users. Medical History Chronic UTI (urinary tract infection) Dementia Hypertension Urinary incontinence Surgical History No significant past surgical history Family History Other No significant family history Social History Smoking Status: Never smoker alcohol intake: never current occupational status: unemployed Travel in the last 8 weeks: None ROS Obtained: Yes All systems reviewed & no additional complaints except as documented Constitutional Constitutional: Reports fatigue Musculoskeletal Musculoskeletal: Reports other (Right lower leg redness and swelling) Neurologic Neurologic: Reports confusion Endocrine Endocrine: Reports fatigue
--- NOTE | 2022-06-17 22:06 | PC.NURSE ---
Hospitalist Brittani @ bedside
--- NOTE | 2022-06-17 22:07 | PC.NURSE ---
Mat, S Call RN, notified for bed assignment
--- NOTE | 2022-06-17 22:20 | EXP.HP ---
History of Present Illness *Admission Date: 06/17/22 *Reason for visit:: AMS *History of present illness: This is an 87-year-old male with a past medical history of hypertension, BPH, dementia who presents to the emergency department today with concerns for altered mental status. He typically resides with his daughter and son-in-law who are out of town at this time. Grandson noted patient to be altered walking through the house and only his underwear and a towel. Patient does have BPH with a history of chronic urinary tract infections. He recently underwent Kelly catheterization and presents with a indwelling Kelly catheter Placed prior to arrival. On direct questioning, patient is awake alert and oriented x2 and able to provide some collateral history. He denies any fever, cough, congestion or urinary symptoms. He does report feeling somewhat off today but is feeling better at this time. He also reports right lower extremity swelling and edema. He provides history that he works in his garden and the redness is likely from something related to this. Emergency department work-up significant for acute cystitis noted on urinalysis. +<Leukoesterase, + blood,+2 bacteria, urine taken directly from Kelly catheter tubing. He is also noted to have right lower extremity edema and erythema. of note, patient was hospitalized approximately 1 month ago for similar complaints and discharged on 7 days of cefdinir For his urinary tract infection. He is currently stable, admitted to the hospital service for further evaluation and management. [facility] Disclaimer: The information contained in this section may have been updated after the patient was seen, as this information can be updated by other users. Medical History Chronic UTI (urinary tract infection) Dementia Hypertension Urinary incontinence Surgical History No significant past surgical history Family History Other No significant family history Social History (Updated 06/17/22 @ 23:55 by Rose Barton RN) Smoking Status: Never smoker alcohol intake: never current occupational status: unemployed Travel in the last 8 weeks: None Review of Systems Constitutional Constitutional: Reports as per HPI Eyes Eyes: Reports as per HPI ENT Ears, Nose, Mouth, and Throat: Reports as per HPI *Cardiovascular Cardiovascular: Reports as per HPI *Respiratory Respiratory: Reports as per HPI *Gastrointestinal Gastrointestinal: Reports as per HPI *Genitourinary Genitourinary: Reports as per HPI *Musculoskeletal Musculoskeletal: Reports as per HPI Integumentary/Breasts Skin/Breast: Reports as per HPI *Neurologic Neurologic: Reports confusion Psychiatric Psychiatric: Reports confusion Meds Home Medications and Allergies Home Medications Medication Instructions Recorded Confirmed Type donepezil 5 mg tablet 5 mg PO DAILY Memory 04/28/22 06/18/22 History finasteride 5 mg tablet 5 mg PO DAILY prostate 04/28/22 06/18/22 History tamsulosin 0.4 mg capsule 0.4 mg PO HS 30 days #30 caps 04/29/22 06/18/22 Rx memantine 5 mg tablet 5 mg PO BID memory 06/18/22 06/18/22 History New Prescriptions to Start Prescriptions: Allergies Allergy/AdvReac Type Severity Reaction Status Date / Time No Known Allergies Allergy Verified 04/28/22 17:03 Exam Data for Last 24 hours Vital signs and Labs for Last 24 Hours: Temp Pulse Resp BP Pulse Ox 98.5 F 56 L 11 L 156/87 H 94 L 06/17/22 19:42 06/17/22 20:30 06/17/22 20:30 06/17/22 20:30 06/17/22 20:30 Laboratory Results - last 24 hr 06/17/22 19:45: WBC 9.2, RBC 4.85, Hgb 14.2, Hct 44.4, MCV 91.4, MCH 29.3, MCHC 32.1, RDW 14.9, Plt Count 261, MPV 7.9, Neut % (Auto) 72.4, Lymph % (Auto) 12.4, [place] % (Auto) 8.5, Eos % (Auto) 5.7, Baso % (Auto) 0.9, Neut # (Auto)
[2022-06-17 22:48] VITALS: BP 167/85; PULSE 58; RESP 16; TEMP 36.6; O2SAT 98
--- NOTE | 2022-06-17 22:48 | PC.NURSE ---
RECEIVED REPORT FROM [facility] ED NURSE AT [id number]. PATIENT IS 87 YO MALE BEING ADMITTED WITH UTI AND AMS BY HOSPITALIST. MAY COME UP IN W/C.
[2022-06-17 23:00] VITALS: O2SAT 96
--- NOTE | 2022-06-17 23:05 | PC.NURSE ---
Pt arrived to floor via wheelchair @ [id number]
--- NOTE | 2022-06-17 23:28 | PC.NURSE ---
PATIENT ARRIVEDTO THE FLOOR VIA W/C. A/O X 3 P[address], [address]ACE AND YEAR.
[2022-06-17 23:31] VITALS: BP 149/71; PULSE 53; RESP 16; TEMP 36.5; O2SAT 96
[2022-06-18 00:07] LABS: Troponin I < 0.01 ng/ml (0.00-0.034)
--- NOTE | 2022-06-18 00:46 | PC.NURSE ---
PATIENT IS A/O X 3: PERSON, PLACE, TIME. DENIES PAIN. URINE CLEAR YELLOW IN SNYDER CATH. IV VANCOMYCIN 1 GRAM INITIAL INFUSION, WILL RECEIVE ANOTHER 500 MG IN 100 ML NS TO EQUAL 1500MG INITIAL DOSE (VERIFIED DOSING WITH [facility]WATCH PHARMACIST DUSTIN ). 2+ PITTING EDEMA IN RIGHT LOWER LEG AND FOOT, RED AND WARM. 1+ PITTING EDEMA IN LEFT LOWER LEG.
[2022-06-18 02:52] LABS: Troponin I < 0.01 ng/ml (0.00-0.034)
[2022-06-18 04:00] VITALS: BP 168/86; PULSE 53; RESP 16; TEMP 36.5; O2SAT 96; BMI 21.6
--- NOTE | 2022-06-18 04:18 | PC.NURSE ---
HAS RESTED WELL. A/O X 3. SNYDER CATHETER PATENT AND INTACT TO BEDSIDE DRAINAGE BAG, URINE CLEAR YELLOW. DENIES PAIN/DISCOMFORY. PITTING EDEMA IN BLEs, R>L. POSSIBLE CELLULITIS RLE.
[2022-06-18 06:08] LABS: Basophils # 0.1 K/mm3 (0-0.2); Basophils % 1.1 % (0.1-2.0); Eosinophils # 0.6 K/mm3 (0.0-0.4); Eosinophils % 8.9 % (0.1-12.0); Hematocrit 42.2 % (42.0-52.0); Hemoglobin 13.2 g/dL (14.1-18.0); Lymphocytes # 1.2 K/mm3 (0.7-4.5); Lymphocytes % 16.3 % (10-50); Mean Corpuscular HGB Conc 31.3 g/dL (31.8-35.4); Mean Corpuscular Volume 92.5 fl (80-94); Monocytes # 0.7 K/mm3 (0.1-1.0); Monocytes % 9.4 % (1.7-9.3); Neutrophils # 4.6 K/mm3 (1.8-7.8); Neutrophils % 64.3 % (37.0-80.0); Platelet Count 221 K/mm3 (142-424); Red Blood Count 4.56 M/mm3 (4.60-6.20); Red Cell Distribution Width 14.8 % (11.5-17.5); White Blood Count 7.2 K/mm3 (4.8-10.8)
[2022-06-18 06:16] LABS: Chloride 106 mmol/L (98-107); Sodium 137 mmol/L (136-145)
[2022-06-18 06:17] LABS: Potassium 3.8 mmoL/L (3.5-5.1)
[2022-06-18 06:19] LABS: Blood Urea Nitrogen 16 mg/dl (9-20); Creatinine Clearance Estimated 53 mL/min (50-200); Estimated Glomerular Filt Rate 80 ml/min (>60); GFR (African American) 97 ML/MIN (>60)
[2022-06-18 06:20] LABS: Anion Gap 8.8 mEq/L (5-15); Calcium 7.8 mg/dl (8.4-10.2); Carbon Dioxide 26 mmol/L (22.0-30.0); Glucose 83 mg/dl (74-100)
--- NOTE | 2022-06-18 07:41 | EXP.ACUTE.PN ---
Subjective *Date: 06/18/22 *Time: 10:40 Interval history: Doing better this morning. Alert and oriented to person and place. No fever overnight. Blood pressure elevated this morning. Repeat labs this morning with stable white cell count. Tolerating p.o. intake. Denies any shortness of breath, chest pain, nausea or vomiting. Medical Exam Vital signs and Labs for Last 24 Hours: Vital Signs Temp Pulse Pulse Resp BP BP Pulse Ox 06/18/22 04:00 97.7 F 53 L 16 168/86 H 96 06/17/22 23:00 96 06/17/22 23:31 97.7 F 53 L 16 149/71 H 96 06/17/22 22:48 98 F 58 L 16 167/85 H 06/17/22 20:30 56 L 11 L 156/87 H 94 L 06/17/22 19:42 98.5 F 56 L 17 169/100 H 97 Intake and Output 06/17/22 06/17/22 06/18/22 15:59 23:59 07:59 Intake Total 970 / 970 Output Total 175 / 175 Balance -175 / -175 970 / 970 Intake: Intake, Oral Amount 120 / 120 Intake, Total IV Amount 850 / 850 0.9 % Sodium Chloride 1000ML 1, 500 / 500 000 ml @ 100 mls/hr IV .[facility] Rx#:[id number] Vancomycin HCl 1,000 mg In 0.9 250 / 250 % Sodium Chloride 250 ml @ 125 mls/hr IV Q8H [facility] Rx#:[id number] Vancomycin HCl 500 mg In 0.9 % 100 / 100 Sodium Chloride 100 ml @ 125 mls/hr IV ONCE ONE Rx#:[id number] Output: Output, Urine Amount 175 / 175 Other: Number of Unmeasured Voids 1 Weight 72.575 kg 72.5 kg Patient Weight 06/18/22 23:59 Weight 72.5 kg Laboratory Results - last 24 hr 06/17/22 19:45: WBC 9.2, RBC 4.85, Hgb 14.2, Hct 44.4, MCV 91.4, MCH 29.3, MCHC 32.1, RDW 14.9, Plt Count 261, MPV 7.9, Neut % (Auto) 72.4, Lymph % (Auto) 12.4, [place] % (Auto) 8.5, Eos % (Auto) 5.7, Baso % (Auto) 0.9, Neut # (Auto) 6.7, Lymph # (Auto) 1.2, [place] # (Auto) 0.8, Eos # (Auto) 0.5 H, Baso # (Auto) 0.1 06/17/22 19:45: PT 10.9, INR 1.01, APTT 28.5 06/17/22 19:45: Sodium 138, Potassium 3.8, Chloride 104, Carbon Dioxide 30, Anion Gap 7.8, BUN 18, Creatinine 1.20, Estimated Creat Clear 45, Estimated GFR 57 L, Est GFR ( Amer) 69, Glucose 97, Calcium 8.4, Magnesium 2.2, Total Bilirubin 1.0, AST 26, ALT 18, Alkaline Phosphatase 78, Troponin I < 0.01, Total Protein 6.0 L, Albumin 3.4 L, Globulin 2.6, Albumin/Globulin Ratio 1.3, Salicylates < 1.0 L, Acetaminophen < 10 L 06/17/22 19:45: Lactate 1.2 06/17/22 19:45: Plasma/Serum Alcohol < 10 06/17/22 20:14: Urine Color Yellow, Urine Appearance Clear, Urine pH 6.5, Ur Specific [place] 1.025, Urine Protein 3+, Urine Glucose (UA) Negative, Urine Ketones 1+, Urine Blood 3+, Urine Nitrate Negative, Urine Bilirubin 1+ A, Urine Urobilinogen 0.2, Ur Leukocyte Esterase 2+ A, Urine RBC Tntc, Urine WBC Tntc, Ur Squamous Epith Cells None, Calcium Oxalate Crystal 2+, Urine Bacteria 2+ 06/17/22 20:20: Urine Opiates Screen Negative, Urine Methadone Screen Negative, Ur Barbituates Screen Negative, Ur Phencyclidine Scrn Negative, Ur Amphetamines Screen Negative, U Benzodiazepines Scrn Negative, Urine Cocaine Screen Negative, U Marijuana (THC) Screen Negative 06/17/22 23:30: Troponin I < 0.01 06/18/22 02:20: Troponin I < 0.01 06/18/22 05:30: WBC 7.2, RBC 4.56 L, Hgb 13.2 L, Hct 42.2, MCV 92.5, MCH 29.0, MCHC 31.3 L, RDW 14.8, Plt Count 221, MPV 8.0, Neut % (Auto) 64.3, Lymph % (Auto) 16.3, [place] % (Auto) 9.4 H, Eos % (Auto) 8.9, Baso % (Auto) 1.1, Neut # (Auto) 4.6, Lymph # (Auto) 1.2, [place] # (Auto) 0.7, Eos # (Auto) 0.6 H, Baso # (Auto) 0.1 06/18/22 05:30: Sodium 137, Potassium 3.8, Chloride 106, Carbon Dioxide 26, Anion Gap 8.8, BUN 16, Creatinine 0.90 D, Estimated Creat Clear 53, Estimated GFR 80, Est GFR ( Amer) 97 D, Glucose 83, Calcium 7.8 L I & O for Labs for Last 24 Hours: Intake & Output 06/15/22 06/16/22 06/17/22 06/18/22 23:59 23:59 23:59 23:59 Intake Total 970 / 970 Output Total 175 / 175 Balance -175 / -175 970 / 970 Weight 72.575 kg 72.5 kg Constitutional: Present no acute distress, average body habi
--- NOTE | 2022-06-18 07:42 | EXP.PHA.CONS ---
Pharmacy Consult Date: 06/18/22 Time: 07:43 Referring provider: DR. JULIAN Reason for Consult:: VANCOMYCIN DOSING Allergies Allergy/AdvReac Type Severity Reaction Status Date / Time No Known Allergies Allergy Verified 04/28/22 17:03 Home Medications Medication Instructions Recorded Confirmed Type donepezil 5 mg tablet 5 mg PO DAILY Memory 04/28/22 06/18/22 History finasteride 5 mg tablet 5 mg PO DAILY prostate 04/28/22 06/18/22 History tamsulosin 0.4 mg capsule 0.4 mg PO HS 30 days #30 caps 04/29/22 06/18/22 Rx memantine 5 mg tablet 5 mg PO BID memory 06/18/22 06/18/22 History New Prescriptions to Start Prescriptions: Height: 1.83 m Weight: 72.5 kg Laboratory Results:: Laboratory Results - last 24 hr 06/17/22 19:45: WBC 9.2, RBC 4.85, Hgb 14.2, Hct 44.4, MCV 91.4, MCH 29.3, MCHC 32.1, RDW 14.9, Plt Count 261, MPV 7.9, Neut % (Auto) 72.4, Lymph % (Auto) 12.4, [place] % (Auto) 8.5, Eos % (Auto) 5.7, Baso % (Auto) 0.9, Neut # (Auto) 6.7, Lymph # (Auto) 1.2, [place] # (Auto) 0.8, Eos # (Auto) 0.5 H, Baso # (Auto) 0.1 06/17/22 19:45: PT 10.9, INR 1.01, APTT 28.5 06/17/22 19:45: Sodium 138, Potassium 3.8, Chloride 104, Carbon Dioxide 30, Anion Gap 7.8, BUN 18, Creatinine 1.20, Estimated Creat Clear 45, Estimated GFR 57 L, Est GFR ( Amer) 69, Glucose 97, Calcium 8.4, Magnesium 2.2, Total Bilirubin 1.0, AST 26, ALT 18, Alkaline Phosphatase 78, Troponin I < 0.01, Total Protein 6.0 L, Albumin 3.4 L, Globulin 2.6, Albumin/Globulin Ratio 1.3, Salicylates < 1.0 L, Acetaminophen < 10 L 06/17/22 19:45: Lactate 1.2 04/27/23 19:45: Plasma/Serum Alcohol < 10 06/17/22 20:14: Urine Color Yellow, Urine Appearance Clear, Urine pH 6.5, Ur Specific [place] 1.025, Urine Protein 3+, Urine Glucose (UA) Negative, Urine Ketones 1+, Urine Blood 3+, Urine Nitrate Negative, Urine Bilirubin 1+ A, Urine Urobilinogen 0.2, Ur Leukocyte Esterase 2+ A, Urine RBC Tntc, Urine WBC Tntc, Ur Squamous Epith Cells None, Calcium Oxalate Crystal 2+, Urine Bacteria 2+ 06/17/22 20:20: Urine Opiates Screen Negative, Urine Methadone Screen Negative, Ur Barbituates Screen Negative, Ur Phencyclidine Scrn Negative, Ur Amphetamines Screen Negative, U Benzodiazepines Scrn Negative, Urine Cocaine Screen Negative, U Marijuana (THC) Screen Negative 06/17/22 23:30: Troponin I < 0.01 06/18/22 02:20: Troponin I < 0.01 06/18/22 05:30: WBC 7.2, RBC 4.56 L, Hgb 13.2 L, Hct 42.2, MCV 92.5, MCH 29.0, MCHC 31.3 L, RDW 14.8, Plt Count 221, MPV 8.0, Neut % (Auto) 64.3, Lymph % (Auto) 16.3, [place] % (Auto) 9.4 H, Eos % (Auto) 8.9, Baso % (Auto) 1.1, Neut # (Auto) 4.6, Lymph # (Auto) 1.2, [place] # (Auto) 0.7, Eos # (Auto) 0.6 H, Baso # (Auto) 0.1 06/18/22 05:30: Sodium 137, Potassium 3.8, Chloride 106, Carbon Dioxide 26, Anion Gap 8.8, BUN 16, Creatinine 0.90 D, Estimated Creat Clear 53, Estimated GFR 80, Est GFR ( Amer) 97 D, Glucose 83, Calcium 7.8 L Medical History: Medical History (Updated 06/18/22 @ 07:41 by Russell Julian MD) Chronic UTI (urinary tract infection) Dementia Hypertension Urinary incontinence Assessment and Plan Assessment and plan all Dx Assessment and Plan for all problems:: Pharmacokinetic dosing service Objective: Patient: Floor: Age: 87 yo Serum creatinine: 1 mg/dL Height: 72.0 Inches Weight (kg): 72.5 Assessment: IBW (kg): 77.60 Dosing wt(kg): 72.5 Estimated Creatinine clearance (ml/min): 53.4 CRCL method: Cockcroft and Gault using ibw(default). Drug selected: Vancomycin Loading dose (mg): 0 Vd (liters): 58.0 (factor used: 0.8 L/kg) Ramo (hr-1): 0.049 Half life (hrs): 14.15 Recommended dose: 1250 mg Interval: 18 hrs Infusion time (hrs): 2.0 Predicted peak (mcg/mL): 35.0 Predicted trough (mcg/mL): 15.98 Total body weight is being used for vancomycin dosing. Recommendations: Patient received a total of vancomycin
[2022-06-18 08:00] VITALS: BP 143/82; PULSE 66; RESP 18; TEMP 36.9; O2SAT 95
--- NOTE | 2022-06-18 08:00 | CA_ITS ---
FINAL REPORT TECHNIQUE: Color Doppler, duplex Doppler and compression sonography of the right lower extremity venous system was performed. CLINICAL HISTORY: RLE edema, redness, UTI FINDINGS: There is no evidence of deep venous thrombosis from the level of the groin to the calf. The veins are patent and compressible. IMPRESSION: No evidence of deep venous thrombosis right lower extremity. Reviewed, Interpreted and Dictated by Johny Angulo III, MD Transcribed by Margarita Patel Authenticated and [facility]
--- NOTE | 2022-06-18 08:17 | HMH.PHAINT1 ---
Pharmacy Intervention Comments: HOME MEDICATION LIST VERIFIED USING LIST FROM OUTPATIENT PHARMACY
[2022-06-18 09:08] LABS: Coronavirus 19, PCR Not Detected (NotDetected); Influenza A, PCR Not Detected (NotDetected); Influenza B, PCR Not Detected (NotDetected)
--- NOTE | 2022-06-18 10:00 | HMH.OTEV ---
OT Inpatient Evaluation Rehab OT IP Evaluation Start: 06/18/22 07:55 Freq: ONCE Status: Active Protocol: Document 06/18/22 09:53 VICKIEHALLIE (Rec: 06/18/22 10:00 MADHAV [id number]) Rehab OT IP Assessment Subjective History This is an 87-year-old male with a past medical history of hypertension, BPH, dementia who presents to the emergency department today with concerns for altered mental status. He typically resides with his daughter and son-in-law who are out of town at this time. Grandson noted patient to be altered walking through the house and only his underwear and a towel. Patient does have BPH with a history of chronic urinary tract infections. He recently underwent Kelly catheterization and presents with a indwelling Kelly catheter Placed prior to arrival. On direct questioning, patient is awake alert and oriented x2 and able to provide some collateral history. He denies any fever, cough, congestion or urinary symptoms. He does report feeling somewhat off today but is feeling better at this time. He also reports right lower extremity swelling and edema. He provides history that he works in his garden and the redness is likely from something related to this. Emergency department work-up significant for acute cystitis noted on urinalysis. +< Leukoesterase, + blood,+2 bacteria, urine taken directly from Kelly catheter tubing. He is also noted to have right lower extremity edema and erythema. of note, patient was hospitalized approximately 1 month ago for
--- NOTE | 2022-06-18 10:44 | HMH.PTEV ---
Physical Therapy Evaluation Rehab PT IP Evaluation Start: 06/18/22 07:55 Freq: ONCE Status: Active Protocol: Document 06/18/22 08:30 DANNYESCOBAR (Rec: 06/18/22 10:44 HALEYHAIR [id number]) Subjective/History History History 87 yowm adm to [facility] with UTI and AMS, has hx of dementia and chronic needs for catheter . He reports he feels better this am, he lives with family, 1-2 steps to enter the home, and uses a cane for ambulation independently at baseline. Subjective Subjective Pt reports no c/o this am. Rehab PT IP Eval Objective Appearance Patient Behavior Appropriate Patient Orientation Person,Place,Time Difficulty following instructions none Speech Pattern Clear Ambulation Patient Able to Ambulate Yes Ambulation Observation IP General Gait Pattern Observation No Deviations/Normal Ambulation Distance (feet) 100 Ambulation Assistive Device Straight Cane Ambulation Ability Independent Balance Ability to Arise Able, uses arms to help Sitting Balance Steady, safe Standing Balance Steady, wide stance Dynamic Sitting Balance Ability Good Dynamic Standing Balance Ability Good Transfers Bed Transfer Ability Independent Chair Transfer Ability Independent Sit to Stand Bed Transfer Ability Independent Sit to Stand Chair Transfer Ability Independent ROM All Extremities PT ROM Status WFL MMT All Extremities PT MMT WFL Rehab PT IP prob,goals,plan Problems Date of Evaluation: 06/18/22 Discharge Plan PT Discharge Plan Pt is currently at baseline for all mobility and is appropriate to return home with assistance once medically stable for d/c. G -code Required No Eval Complexity Eval Charge Codes 17952 - Moderate Complexity PHYSICIAN CERTIFICATION: I certify the specified therapy services for Zaid Wallis Norris are required, authorized, and reviewed every 30 days.
[2022-06-18 10:47] VITALS: BMI 21.6
[2022-06-18 11:14] VITALS: BP 167/99; PULSE 56; RESP 18; TEMP 36.3; O2SAT 95
[2022-06-18 15:13] VITALS: BP 145/95; PULSE 65; RESP 18; TEMP 36.6; O2SAT 96
--- NOTE | 2022-06-18 16:54 | PC.NURSE ---
PT IS SITTING UP IN THE BED. TOLERATED SITTING UP IN THE CHAIR FOR A FEW HOURS THIS SHIFT. TOLERATED BLADDER TRAINING THIS SHIFT HOWEVER DAUGHTER STATED HEY HAVE ATTEMPTED TO TAKE CATHETER OUT IN THE PAST AND ALL IT DID WAS CAUSE MORE PROBLEMS FOR PT. THIS MORNING PT WAS ALERT AND ORIENTED X3 ON ASSESSMENT HOWEVER HAS BECAME MORE CONFUSED T/O THE SHIFT. PT HAS ATTEMPTED TO GET OOB MULTIPLE TIMES AND STATES THAT HE IS IN HIS BEDROOM AT HOME. PT STATED HE WANTS HIS OWN DEPENDS. DAUGHTER NOTIFIED AND SHE STATED SHE WOULD BRING THEM TO THE HOSPITAL. ACCORDING TO PT'S DAUGHTER PT DOES NOT LIKE BEING AWAY FROM HOME AND HE GETS CONFUSED OFTEN WHEN HE HAS TO STAY IN THE HOSPITAL. LUNG SOUNDS CLEAR. ABDOMEN SOFT/NON TENDER WITH ACTIVE BOWEL SOUNDS. EATING AND DRINKING WELL. SWELLING NOTED TO BLE. REDNESS NOTED TO RLE. WILL CONTINUE TO MONITOR.
[2022-06-18 20:00] VITALS: BP 187/91; PULSE 60; TEMP 36.8; O2SAT 97
[2022-06-19 04:00] VITALS: BP 114/72; PULSE 83; RESP 17; TEMP 36.2; O2SAT 92; BMI 17.6
--- NOTE | 2022-06-19 04:16 | PC.NURSE ---
NO ACUTE CHANGES THIS SHIFT. LUNG SOUNDS ARE DIMINISHED. REMAINS ON ROOM AIR. PLEASANTLY CONFUSED. BED ALARM AND STAFF SITTER IN PLACE FOR PT SAFETY. SNYDER REMAINS IN PLACE AND IS DRAINING ADEQUATELY. VSS.
--- NOTE | 2022-06-19 07:43 | EXP.DC.SUM ---
General Admission date:: 06/17/22 Discharge date: 06/19/22 HPI HPI HPI: This is an 87-year-old male with a past medical history of hypertension, BPH, dementia who presents to the emergency department today with concerns for altered mental status. He typically resides with his daughter and son-in-law who are out of town at this time. Grandson noted patient to be altered walking through the house and only his underwear and a towel. Patient does have BPH with a history of chronic urinary tract infections. He recently underwent Kelly catheterization and presents with a indwelling Kelly catheter Placed prior to arrival. On direct questioning, patient is awake alert and oriented x2 and able to provide some collateral history. He denies any fever, cough, congestion or urinary symptoms. He does report feeling somewhat off today but is feeling better at this time. He also reports right lower extremity swelling and edema. He provides history that he works in his garden and the redness is likely from something related to this. Emergency department work-up significant for acute cystitis noted on urinalysis. +<Leukoesterase, + blood,+2 bacteria, urine taken directly from Kelly catheter tubing. He is also noted to have right lower extremity edema and erythema. of note, patient was hospitalized approximately 1 month ago for similar complaints and discharged on 7 days of cefdinir For his urinary tract infection. He is currently stable, admitted to the hospital service for further evaluation and management. Hospital Course Hospital Course Hospital Course: This is an 87-year-old male who was admitted for acute encephalopathy, catheter associated UTI and cellulitis.? He has been placed on broad-spectrum antibiotics after blood cultures obtained and urine culture obtained.? He is awake alert and oriented with some mild confusion but otherwise stable.? Concern with legs being secondary to edema. Patient appears at baseline mentation given dementia.? Problems addressed as follows: Catheter associated urinary tract infection BPH -Long-term indwelling Kelly catheter? placed prior to arrival, replaced on admission. Patient follows with urologist in [place]. Discussed case with patient's daughter, he has had previous infections. We will leave catheter in place at this time. Urine still not growing at time of discharge. Transitioned antibiotics to doxycycline given previous culture on 04/28 for staph hemolyticus. Doxycycline will cover both for UTI and suspected cellulitis. Plan to continue tamsulosin and finasteride. Recommend follow-up with urology for discussion of further management. We will continue to follow cultures until they result. Lymphedema versus cellulitis of lower extremities -Improved with diuresis. Initially with mild erythema of right leg but edema bilaterally. Continuing doxycycline to complete empiric course for component of cellulitis. Suspect secondary to lymphedema. Recommend compression stockings to improve swelling. Not discharging on diuretic. Of note, Doppler obtained that ruled out DVT. dementia: Appears at baseline mentation. continue donepezil and memantine HTN: Initiated on lisinopril 5 mg daily.? Responded well. Improvement in blood pressure without dizziness. We will continue 5 mg at discharge. Recommend following up with PCP within the next 1 to 2 weeks. Would benefit from reevaluation with urology. Discussed following up with urology with patient's daughter, she is going to make an appointment. Would encourage reevaluating long-term catheter and considering in and out cathing given recurrent UTIs associated with his catheter at this time. Will defer further management of catheter to patient's urologist. Of note, catheter was replaced on admission to the hospital. Exam Data for Last 24 hours Vital signs and Labs for Last 24 Hours: Temp Pulse Resp BP Pulse Ox 97.2 F L 83 17 114/72 92 L 06/19/22
[2022-06-19 08:00] VITALS: BP 116/68; PULSE 67; RESP 17; TEMP 36.6; O2SAT 96
[2022-06-19 08:01] LABS: Basophils # 0.1 K/mm3 (0-0.2); Basophils % 1.1 % (0.1-2.0); Eosinophils # 0.4 K/mm3 (0.0-0.4); Eosinophils % 4.9 % (0.1-12.0); Hematocrit 44.5 % (42.0-52.0); Hemoglobin 14.3 g/dL (14.1-18.0); Lymphocytes # 1.7 K/mm3 (0.7-4.5); Lymphocytes % 19.1 % (10-50); Mean Corpuscular HGB Conc 32.1 g/dL (31.8-35.4); Mean Corpuscular Hemoglobin 29.5 pg (27.0-31.2); Mean Corpuscular Volume 91.8 fl (80-94); Mean Platelet Volume 7.6 fl (7.4-10.4); Monocytes # 0.8 K/mm3 (0.1-1.0); Monocytes % 8.6 % (1.7-9.3); Neutrophils # 5.9 K/mm3 (1.8-7.8); Neutrophils % 66.4 % (37.0-80.0); Platelet Count 248 K/mm3 (142-424); Red Blood Count 4.84 M/mm3 (4.60-6.20); Red Cell Distribution Width 14.9 % (11.5-17.5); White Blood Count 8.9 K/mm3 (4.8-10.8)
[2022-06-19 08:20] LABS: Chloride 96 mmol/L (98-107); Potassium 3.5 mmoL/L (3.5-5.1); Sodium 139 mmol/L (136-145)
[2022-06-19 08:23] LABS: Anion Gap 14.5 mEq/L (5-15); Blood Urea Nitrogen 22 mg/dl (9-20); Calcium 8.5 mg/dl (8.4-10.2); Carbon Dioxide 32 mmol/L (22.0-30.0); Creatinine Clearance Estimated 36 mL/min (50-200); Estimated Glomerular Filt Rate 57 ml/min (>60); GFR (African American) 69 ML/MIN (>60); Glucose 150 mg/dl (74-100)
--- NOTE | 2022-06-21 14:33 | CARE MANAGER ---
Contacted patient related to hospital discharge. He states he was able to get his medication and is aware of his follow up appointment. He denies any questions or concerns. LEONELA Davies
== END 2022-06-19 10:58 | disposition home or self-care (01) ==
LOC: ER 19:44 → 2ND 22:14
PROVIDERS: Nurse Practitioner Acute Care; Admitting Provider Internal Medicine Adolescent Medicine; Emergency Provider Emergency Medicine; PCP Internal Medicine; Visit Provider Internal Medicine Adolescent Medicine
DX: N39.0 Urinary tract infection, site not specified (principal); T83.511A Infection and inflammatory reaction due to indwelling urethral catheter, initial encounter; Z79.899 Other long term (current) drug therapy; G93.41 Metabolic encephalopathy; R60.0 Localized edema; L03.115 Cellulitis of right lower limb; M79.604 Pain in right leg; Y73.1 Therapeutic (nonsurgical) and rehabilitative gastroenterology and urology devices associated with adverse incidents; N39.498 Other specified urinary incontinence; N40.1 Benign prostatic hyperplasia with lower urinary tract symptoms; F03.90 Unspecified dementia, unspecified severity, without behavioral disturbance, psychotic disturbance, mood disturbance, and anxiety; I10 Essential (primary) hypertension; Z20.822 Contact with and (suspected) exposure to COVID-19
CPT/HCPCS: G0378; G0379; 36415; 51702; 71045; 80048; 80053; 80305; 80329; 81001; 83605; 83735; 84484; 85025; 85610; 85730; 87040; 87086; 93005; 93971; 97162; 97165; 99285; C9803; J0692; J3370; U0003; U0005

== ENCOUNTER 2022-06-29 15:47 | Emergency (ER) | payer MEDICARE, SELFPAY ==
[2022-06-29 16:01] VITALS: BP 155/96; PULSE 58; O2SAT 97
[2022-06-29 16:05] VITALS: BP 167/97; PULSE 58; RESP 16; TEMP 36.5; O2SAT 96; BMI 25.8
[2022-06-29 16:30] VITALS: PULSE 53; O2SAT 97
[2022-06-29 16:40] LABS: Microscopic, Urine URINE MICROSCOPIC (MICROSCOPIC)
--- NOTE | 2022-06-29 16:40 | PC.NURSE ---
Patient came in with a rothman anchored; however, patient had cut the bag off and placed tape around the opening... Patient was educated on high risk of infection r/t to this practice. He promises not to cut this one since it's a leg bag. Patient daughter at bedside educated as well using teach back
[2022-06-29 17:02] LABS: Appearance,Urine CLEAR (Clear); Bilirubin,Urine Negative (Negative); Blood, Urine 3+ (Negative); Color,Urine YELLOW (Yellow); Glucose,Urine (UA) Negative (Negative); Ketones,Urine Negative (Negative); Leukocyte Esterase,Urine 2+ (Negative); Nitrate,Urine Negative (Negative); PH,Urine 6.5 (5.0-8.5); Protein,Urine 1+ (Negative); Specific Gravity, Urine 1.025 (1.005-1.030)
[2022-06-29 17:23] LABS: Bacteria,Urine 1+ /lpf; Squamous Epithelial Cell,Urine Occasional #/hpf (0-5)
--- NOTE | 2022-06-29 17:26 | PC.NURSE ---
rounded on pt no complaints at this time,call light at bs
--- NOTE | 2022-06-29 17:27 | HMH.EDGENADL ---
Discharge Plan Disposition Patient Disposition: Home, Self-Care Condition: Good Prescriptions Prescriptions: New sulfamethoxazole-trimethoprim 800-160 mg tablet 1 tab PO BID 10 Days Qty: 20 0RF No Action donepezil 5 mg Tablet 5 mg PO DAILY finasteride 5 mg Tablet 5 mg PO DAILY tamsulosin 0.4 mg capsule 0.4 mg PO HS 30 Days Qty: 30 0RF memantine 5 mg tablet 5 mg PO BID Label Comments: TAKE 1 TABLET BY MOUTH ONCE DAILY FOR 2-3 WEEKS THEN INCREASE TO 1 TWICE DAILY. lisinopril 5 mg Tablet 5 mg PO DAILY 30 Days Qty: 30 0RF doxycycline hyclate 100 mg Tablet 100 mg PO Q12H 5 Days Qty: 10 0RF melatonin 5 mg Tablet 5 mg PO HS 30 Days Qty: 30 0RF Referrals Follow up/Referrals: Sruthi Valverde MD [Primary Care Provider] - See instructions Activity Restrictions/Add. Instructions Additional Instructions/Restrictions: You were evaluated in the emergency department today. At this time, your urine is concerning for possible infection. Please pickling grader your prescription for antibiotics at the pharmacy and follow-up with your primary care provider over the next 3 days. Also follow-up with your urologist. Return to the emergency department for any new or worsening symptoms. Clinical Impressions Clinical Impression: BPH (benign prostatic hyperplasia), Catheter-associated urinary tract infection, Encounter for Kelly catheter replacement Instructions Patient Instructions: How to Care for Your Kelly Catheter -- Male, DI for Urinary Tract Infection (UTI) Discharge ED Provider: Florence Shaw General Adult HPI General Chief complaint: Urogenital-Male Stated complaint: catheder has come loose Time Seen by Provider: 06/29/22 15:52 Mode of Arrival: Ambulatory Source of Information: Patient and Relative Limitations: No Limitations Description of Symptoms (Recalled from ER Triage Doc. by RN): pt comes in with difficulties with his catheter. pt is confused at times, but can give description of symptoms. pt states that his catheter has been leaking, last night he took his catheter apart due to the leaking and put a piece of tape over the opening. pt states that he again took his catheter apart this morning. pt presents with no catheter bag present, tape over the urinary port. daughter reports that pt has had catheter for 2 months and has had several issues with UTI's since. History of Present Illness HPI narrative: This patient is an 87-year-old male presenting to the emergency department for evaluation with concern for leaking from his Kelly catheter. He has BPH and has chronic indwelling Kelly catheter for urinary retention. He tapes his catheter and an attempt to cut the tape, he accidentally cut the catheter itself. He has had leaking from it since then. Otherwise, no acute concerns. He has had a Kelly in place for approximately 2 months and has had several issues with UTIs since. His daughter reports that she is unsure when his next urology appointment is. Patient denies any other concerns, such as fevers, chills, nausea, vomiting, or pain. Related Data Home Medications Medication Instructions Recorded Confirmed donepezil 5 mg tablet 5 mg PO DAILY Memory 04/28/22 06/18/22 finasteride 5 mg tablet 5 mg PO DAILY prostate 04/28/22 06/18/22 memantine 5 mg tablet 5 mg PO BID memory 06/18/22 06/18/22 Previous Rx's Medication Instructions Recorded tamsulosin 0.4 mg capsule 0.4 mg PO HS 30 days #30 caps 04/29/22 lisinopril 5 mg tablet 5 mg PO DAILY 30 days #30 tabs 06/18/22 doxycycline hyclate 100 mg tablet 100 mg PO Q12H 5 days #10 tabs 06/19/22 melatonin 5 mg tablet 5 mg PO HS 30 days #30 tabs 06/19/22 sulfamethoxazole 800 1 tab PO BID 10 days #20 tabs 06/29/22 mg-trimethoprim 160 mg tablet Allergies Allergy/AdvReac Type Severity Reaction Status Date / Time No Known Allergies Allergy Verified 04/28/22 17:03 [facility] Disclaimer: The information contained in
[2022-06-29 17:43] VITALS: BP 155/96; PULSE 55; RESP 16; TEMP 36.6; O2SAT 97
== END 2022-06-29 17:46 | disposition home or self-care (01) ==
PROVIDERS: Emergency Provider Emergency Medicine; PCP Internal Medicine
DX: T83.518A Infection and inflammatory reaction due to other urinary catheter, initial encounter (principal); N40.1 Benign prostatic hyperplasia with lower urinary tract symptoms; R33.9 Retention of urine, unspecified; Z87.891 Personal history of nicotine dependence
CPT/HCPCS: 51702; 81001; 87086; 99283; 99284

== ENCOUNTER 2022-07-13 11:00 | Emergency (ER) | payer MEDICARE, SELFPAY ==
--- NOTE | 2022-07-13 11:02 | XR_ITS ---
FINAL REPORT CLINICAL HISTORY: arm injury FINDINGS: 2 views of the left forearm were obtained. There is no acute fracture or dislocation. There are mild degenerative changes. There is no soft tissue abnormality. IMPRESSION: No acute abnormality. Reviewed, Interpreted and Dictated by Johny Angulo III, MD Transcribed by George De Leon Authenticated and [facility]
--- NOTE | 2022-07-13 11:02 | XR_ITS ---
FINAL REPORT CLINICAL HISTORY: trauma FINDINGS: AP PELVIS: A single view of the pelvis was obtained. There is no acute fracture or dislocation. There has been hip arthroplasty bilaterally. Soft tissues are unremarkable. IMPRESSION: No acute process. Reviewed, Interpreted and Dictated by Johny Angulo III, MD Transcribed by George De Leon Authenticated and [facility]
--- NOTE | 2022-07-13 11:02 | PC.NURSE ---
Dr. Forrester at [facility]
[2022-07-13 11:03] VITALS: BP 181/98; PULSE 54; RESP 20; TEMP 36.9; O2SAT 95; BMI 23.7
--- NOTE | 2022-07-13 11:03 | XR_ITS ---
FINAL REPORT CLINICAL HISTORY: soa COMPARISON: 05/2022 FINDINGS: SINGLE VIEW CHEST The heart size is enlarged. The mediastinum is within normal limits. There is mild bibasilar opacity favoring atelectasis. There is a small left pleural effusion. There is no evidence of pneumothorax. The bony thorax is intact. IMPRESSION: Mild bibasilar opacity favoring atelectasis. Small left pleural effusion. Reviewed, Interpreted and Dictated by Johny Angulo III, MD Transcribed by George De Leon Authenticated and [facility]
--- NOTE | 2022-07-13 11:20 | HMH.EDGENADL ---
Discharge Plan Disposition Patient Disposition: Home, Self-Care Chief Complaint: PAIN Prescriptions Prescriptions: No Action donepezil 5 mg Tablet 5 mg PO DAILY finasteride 5 mg Tablet 5 mg PO DAILY tamsulosin 0.4 mg capsule 0.4 mg PO HS 30 Days Qty: 30 0RF memantine 5 mg tablet 5 mg PO BID Label Comments: TAKE 1 TABLET BY MOUTH ONCE DAILY FOR 2-3 WEEKS THEN INCREASE TO 1 TWICE DAILY. lisinopril 5 mg Tablet 5 mg PO DAILY 30 Days Qty: 30 0RF doxycycline hyclate 100 mg Tablet 100 mg PO Q12H 5 Days Qty: 10 0RF melatonin 5 mg Tablet 5 mg PO HS 30 Days Qty: 30 0RF sulfamethoxazole-trimethoprim 800-160 mg tablet 1 tab PO BID 10 Days Qty: 20 0RF Activity Restrictions/Add. Instructions Additional Instructions/Restrictions: Return for worsening pain swelling or any other concerns within the next 8 hours otherwise follow-up with your primary care physician within the next few days Clinical Impressions Clinical Impression: Arm contusion Discharge ED Provider: Olegario Forrester General Adult HPI General Chief complaint: PAIN Stated complaint: fall Time Seen by Provider: 07/13/22 11:00 Mode of Arrival: EMS Source of Information: Patient and EMS Limitations: No Limitations Description of Symptoms (Recalled from ER Triage Doc. by RN): pt to ed c/o fall. pt states he was walking through the house, became dizzy and fell on his left side. pt is c/o pain to his left ribs. pt reports hitting his head but denie LOC. History of Present Illness HPI narrative: 87-year-old male presents after fall at his house when he was getting up to try to get the phone. He says he felt a little bit unsteady as he was walking and fell. He has pain on the left side of his hip and left chest wall. Reported hitting his head however denies loss of consciousness swelling numbness weakness tingling arms or legs vision changes or any other emergent issues. His last tetanus was updated last year and he has a skin tear to the left forearm Related Data Home Medications Medication Instructions Recorded Confirmed donepezil 5 mg tablet 5 mg PO DAILY Memory 04/28/22 06/18/22 finasteride 5 mg tablet 5 mg PO DAILY prostate 04/28/22 06/18/22 memantine 5 mg tablet 5 mg PO BID memory 06/18/22 06/18/22 Previous Rx's Medication Instructions Recorded tamsulosin 0.4 mg capsule 0.4 mg PO HS 30 days #30 caps 04/29/22 lisinopril 5 mg tablet 5 mg PO DAILY 30 days #30 tabs 06/18/22 doxycycline hyclate 100 mg tablet 100 mg PO Q12H 5 days #10 tabs 06/19/22 melatonin 5 mg tablet 5 mg PO HS 30 days #30 tabs 06/19/22 sulfamethoxazole 800 1 tab PO BID 10 days #20 tabs 06/29/22 mg-trimethoprim 160 mg tablet Allergies Allergy/AdvReac Type Severity Reaction Status Date / Time No Known Allergies Allergy Verified 04/28/22 17:03 [facility] Disclaimer: The information contained in this section may have been updated after the patient was seen, as this information can be updated by other users. Medical History Chronic UTI (urinary tract infection) Dementia Hypertension Urinary incontinence Surgical History No significant past surgical history Family History Other No significant family history Social History Smoking Status: Never smoker alcohol intake: never current occupational status: unemployed Travel in the last 8 weeks: None ROS Obtained: Yes All systems reviewed & no additional complaints except as documented Constitutional Constitutional: Denies fatigue and Denies headache(s) Eyes Eyes: Denies dry eyes ENT Ears, Nose, Mouth, and Throat: Denies headache(s) Cardiovascular Cardiovascular: Denies dyspnea Respiratory Respiratory: Denies dyspnea Gastrointestinal Gastrointestingal:
[2022-07-13 11:33] VITALS: BP 187/104; PULSE 50; O2SAT 97
[2022-07-13 11:47] VITALS: BP 187/95; PULSE 49; O2SAT 98
[2022-07-13 12:21] LABS: Basophils # 0.1 K/mm3 (0-0.2); Basophils % 0.8 % (0.1-2.0); Eosinophils # 0.4 K/mm3 (0.0-0.4); Eosinophils % 3.9 % (0.1-12.0); Hematocrit 46.6 % (42.0-52.0); Hemoglobin 14.7 g/dL (14.1-18.0); Lymphocytes # 1.9 K/mm3 (0.7-4.5); Lymphocytes % 18.6 % (10-50); Mean Corpuscular HGB Conc 31.6 g/dL (31.8-35.4); Mean Corpuscular Hemoglobin 29.3 pg (27.0-31.2); Mean Corpuscular Volume 92.7 fl (80-94); Monocytes # 0.9 K/mm3 (0.1-1.0); Monocytes % 8.5 % (1.7-9.3); Neutrophils # 6.8 K/mm3 (1.8-7.8); Neutrophils % 68.2 % (37.0-80.0); Platelet Count 223 K/mm3 (142-424); Red Blood Count 5.03 M/mm3 (4.60-6.20); Red Cell Distribution Width 15.1 % (11.5-17.5)
[2022-07-13 12:31] LABS: Chloride 101 mmol/L (98-107)
--- NOTE | 2022-07-13 12:31 | PC.NURSE ---
called rad for update on scans. state they will chat with vrad
[2022-07-13 12:32] LABS: Potassium 3.9 mmoL/L (3.5-5.1); Sodium 140 mmol/L (136-145)
[2022-07-13 12:34] LABS: Alanine Aminotransferase 21 U/L (12-78); Albumin Level 3.6 g/dl (3.5-5.0); Albumin/Globulin Ratio 1.3 (1.1-1.8); Alkaline Phosphatase 70 U/L (38-126); Anion Gap 9.9 mEq/L (5-15); Aspartate Amino Transferase 30 U/L (17-59); Bilirubin,Total 0.7 mg/dl (0.2-1.3); Blood Urea Nitrogen 20 mg/dl (9-20); Carbon Dioxide 33 mmol/L (22.0-30.0); Creatinine Clearance Estimated 53 mL/min (50-200); Estimated Glomerular Filt Rate 63 ml/min (>60); GFR (African American) 77 ML/MIN (>60); Globulin 2.7 g/dL (1.3-3.2); Total Protein,Serum 6.3 g/dl (6.3-8.2)
[2022-07-13 12:35] LABS: Calcium 8.8 mg/dl (8.4-10.2); Glucose 112 mg/dl (74-100)
[2022-07-13 12:50] LABS: Troponin I < 0.01 ng/ml (0.00-0.034)
--- NOTE | 2022-07-13 13:03 | PC.NURSE ---
calling rad again for update
--- NOTE | 2022-07-13 13:33 | PC.NURSE ---
pt is sleeping in the bed tap gonzáles at bedside
--- NOTE | 2022-07-13 14:22 | PC.NURSE ---
PT SLEEPING, FAMILY ARRIVED BACK TO ROOM WORKING ON DISCHARGING PT NOW
[2022-07-13 14:34] VITALS: BP 163/105; PULSE 58; RESP 18; TEMP 36.9; O2SAT 96
== END 2022-07-13 14:35 | disposition home or self-care (01) ==
PROVIDERS: Emergency Provider Emergency Medicine
DX: R42 Dizziness and giddiness (principal); R07.9 Chest pain, unspecified; M25.552 Pain in left hip; W19.XXXA Unspecified fall, initial encounter
CPT/HCPCS: 71045; 72170; 73090; 80053; 84484; 85025; 99284; 99285